=== PATIENT | male | born 1955 | race Caucasian/White ===

== ENCOUNTER 2019-02-11 09:41 | Day surgery (SDC) | payer OTHER ==
[2019-02-06 13:28] VITALS: BMI 31.6
[2019-02-11] MEDS ORDERED: PROPOFOL 20 ML ONE ×2 (10:56)
[2019-02-11 12:06] VITALS: TEMP 97.7
[2019-02-11 12:36] VITALS: BP 107/74; PULSE 80
--- NOTE | 2019-02-13 17:03 | PATH ---
Surgical Pathology Report Patient Name: HENRY HENSLEY [facility]. Rec. #: [id number] /Age/Gender: 1955 (Age: 63) / M Account: [id number] Location: [facility] Taken: 02/11/2019 Received: 02/11/2019 Reported: 02/13/2019 Physicians: Tommie Horowitz M.D. Specimen(s) Received NOT SPARE POLYPECTOMY RECTUM Clinical History Family history of colon cancer, family history of polyps Postoperative diagnosis: Polyp Final Diagnosis RECTUM POLYP, POLYPECTOMY: TUBULOVILLOUS ADENOMA. Electronically Signed Jessika Pond M.D. Gross Description Received in formalin labeled "hot snare polypectomy rectum," is a 1.5 x 1.5 x 0.3 cm aggregate of pickett, irregular to polypoid soft tissue fragments. The formalin is filtered and the specimen is entirely submitted in one cassette. /02/12/2019 saudi02/12/2019
== END 2019-02-11 12:35 | disposition home or self-care (01) ==
LOC: FASU-ENDO 09:41
PROVIDERS: ATTEND Internal Medicine Gastroenterology
PROC: 3E0H8GC Introduction of Other Therapeutic Substance into Lower GI, Via Natural or Artificial Opening Endoscopic (ICD-10-PCS; 2019-02-11)
PROC: 0DBP8ZX Excision of Rectum, Via Natural or Artificial Opening Endoscopic, Diagnostic (ICD-10-PCS; principal; 2019-02-11 11:33)
DX: Z12.11 Encounter for screening for malignant neoplasm of colon (principal); Z83.71 Family history of colonic polyps; D12.8 Benign neoplasm of rectum
CPT/HCPCS: 82962; 88305-TC

== ENCOUNTER 2021-03-24 07:59 | Day surgery (SDC) | payer OTHER ==
[2021-03-23 10:11] VITALS: BMI 30.9
[2021-03-24 10:14] VITALS: BP 110/66; PULSE 77; TEMP 98
== END 2021-03-24 10:14 | disposition home or self-care (01) ==
LOC: FASU-ENDO 07:59
PROVIDERS: ATTEND Internal Medicine Gastroenterology
PROC: 0DJD8ZZ Inspection of Lower Intestinal Tract, Via Natural or Artificial Opening Endoscopic (ICD-10-PCS; principal; 2021-03-24 09:08)
DX: Z86.010 Personal history of colon polyps (principal)
CPT/HCPCS: 82962